=== PATIENT | female | born 2000 | race Caucasian/White ===

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

== ENCOUNTER 2025-08-10 17:34 | Emergency (ER) | payer BC ==
[2025-08-10] MEDS ORDERED: Lidocaine 1% PF 2 ML SDV INFILT ONE (17:35)
[2025-08-10] MEDS: Amoxicillin/Clavulanate K 875-125 MG Tab PO ONE (18:37)
== END 2025-08-10 19:37 | disposition home or self-care (01) ==
LOC: FB.ED 17:34
DX: S61.253A Open bite of left middle finger without damage to nail, initial encounter (principal); S61.213A Laceration without foreign body of left middle finger without damage to nail, initial encounter; Z79.899 Other long term (current) drug therapy; W54.0XXA Bitten by dog, initial encounter
CPT/HCPCS: 12001; 73140; 99283; A9270; J2003